=== PATIENT | female | born 1960 ===

== ENCOUNTER 2021-06-04 18:29 | Emergency (ER) | payer SELFPAY ==
[~2021-06-04] VITALS: Ht 165.1 cm; Wt 82.0 kg
[2021-06-04 19:02] LABS: BASOPHILS % 0.6 % (0.0-2.0); EOSINOPHILS % 1.9 % (0.0-5.0); HEMATOCRIT. 42.7 % (36.0-48.0); HEMOGLOBIN. 14.4 g/dL (12.0-16.0); LYMPHOCYTES % 26.9 % (20.0-50.0); MEAN CORPUSCULAR HEMOGLOBIN 30.4 pg (28.0-32.0); MEAN CORPUSCULAR VOLUME 90.3 fL (81.0-99.0); MEAN PLATELET VOLUME 7.3 fl (7.4-10.4); MONOCYTES % 8.1 % (2.0-8.0); NEUTROPHILS % 62.5 % (40.0-76.0); PLATELET 264 x1000/uL (130-400); RED BLOOD CELL COUNT 4.73 mill/uL (4.2-5.4); RED CELL DISTRIBUTION WIDTH 13.2 % (11.6-14.6)
[2021-06-04 19:07] LABS: CHLORIDE 108 mEq/L (98-107)
[2021-06-04] MEDS ORDERED: TOPUD PO (19:45)
[2021-06-04] MEDS ORDERED: ACETAMINOPHEN 325MG TABLET PO ONE (20:45)
[2021-06-04 20:54] VITALS: BP 184/87
== END 2021-06-04 21:04 | disposition home or self-care (01) ==
LOC: ER 18:42
DX: R07.89 Other chest pain (principal)
CPT/HCPCS: 36415; 71045; 80053; 84484; 85025; 99284